=== PATIENT | female | born 2000 | race Caucasian/White ===

== ENCOUNTER 2024-03-18 14:44 | Emergency (ER) | payer OTHER, SELFPAY ==
[2024-03-18 14:56] VITALS: BP 115/83
[2024-03-18 16:10] LABS: Urine Albumin Negative (Neg - Trace); Urine Bilirubin Negative (Negative); Urine Character Clear (Clear); Urine Color Yellow; Urine Glucose Negative (Negative); Urine Ketone Negative (Negative); Urine Leukocyte Negative (Negative); Urine Nitrite Negative (Negative); Urine Occult Blood Negative (Negative); Urine Specific Gravity 1.015 (<1.030); Urine Urobilinogen Negative (Neg - 1+)
[2024-03-18 16:14] LABS: HCG, Urine Qualitative Screen Negative
--- NOTE | 2024-03-18 18:07 | ED.GENMED ---
History of Present Illness
General
Chief Complaint: Abdominal Pain
Time Seen by Provider: 03/18/24 15:30
History of Present Illness
History of Present Illness:
23-year-old female presents to the emergency department for evaluation of acute onset of generalized abdominal pain beginning within the past hour. She reports sharp pain that seems to be somewhat colicky in nature, radiating from the lower abdomen
to the low back. She notes that she has not had a bowel movement in 1 week. No fevers or chills. During the periods of maximal pain she feels sweaty and nauseated. She does note that she has very severe menstrual cramps but she is not due for
her menses for 1 week. No dysuria or hematuria. No prior abdominal surgeries
Review of Systems
Review of Systems
Allergies reviewed?: Yes
All Other Systems: ROS reviewed and negative except as documented in HPI and ROS
Phy Exam
Physical Exam
Physical Exam:
GEN: Well appearing, NAD, WDWN
HEENT: Oral mucosa moist, no scleral icterus
Cardiac: Regular rate
Lung: No respiratory distress, no tachypnea
Abdomen: Generally soft, minimal left lower quadrant tenderness however no rebound or peritoneal signs, no CVA tenderness
MSK: No gross deformity or injuries
Skin: Good color, no pallor or jaundice, no rashes
Neuro: AO x3, moves all extremities freely
Psych: Calm, cooperative
Course
Orders/Labs/Results
Orders:
Orders
03/18/24 15:59
US Pelvis W Transvag Combined Urgent
Comment:
Reason For Exam: L pelvic pain
03/18/24 16:00
Test Result ONCE
03/18/24 16:03
Beta Hcg Urine Qualitative Screen [HCG, Urine Qualitative Screen] Urgent
Date Specimen was Collected: 03/18/24
Time Specimen was Collected: 16:00
Urinalysis Reflex To Culture Urgent
Date Specimen was Collected: 03/18/24
Time Specimen was Collected: 16:01
03/18/24 18:06
Magnesium Citrate [Citroma] 300 ml PO ONCE ONE
Vital Signs
Initial and Last Documented VS:
Initial Vital Signs
Temp Pulse Resp BP Pulse Ox
98.2 F 85 20 115/83 98
03/18/24 14:56 03/18/24 14:56 03/18/24 14:56 03/18/24 14:56 03/18/24 14:56
Last Documented Vital Signs
Temp Pulse Resp BP Pulse Ox
98.2 F 85 20 115/83 98
03/18/24 14:56 03/18/24 14:56 03/18/24 14:56 03/18/24 14:56 03/18/24 14:56
MDM/Problems Addressed
MDM/Problems Addressed:
Ultrasound shows no evidence of gynecologic pathology. Urinalysis is negative for UTI and lack of hematuria is reassuring against kidney stone. I suspect the pain is likely related to constipation given the lower abdominal location and radiation
toward the back. No clinical suspicion for acute surgical abdomen at this time thus do not see any indication for CT of the abdomen pelvis. Patient provided with magnesium citrate for home use, discussed return parameters
*Critical Care Note
Total Time (30-74mins, 75-104mins- exclusive of procedures): Not Applicable
ED Attending Note
-
Portions of this chart may have been created with voice recognition software.� Occasional wrong word or��sound alike� substitutions may have occurred due to the inherent limitations of voice recognition software.
Discharge Plan
Departure
Patient Disposition: Home (Routine Discharge)
Date of Disposition: 03/18/24
Time of Disposition: 18:07
Patient with high blood pressure during this ER visit?: No
Discharge Problem:
Bilateral lower abdominal pain, Constipation
Instructions: Constipation, Adult (DC)
Referrals:
Caitlin Lee DO [Family Provider] -
Interventions
Interventions:
*Risk Screen - Suicide Last Done: 03/18/24 14:44
*General Assessment Last Done: 03/18/24 14:56
*Neglect/Abuse Screening Last Done: 03/18/24 14:56
*Nursing Disposition Last Done: 03/18/24 18:31
BA-Uaowxf-Mlvtjaadys Assessment Last Done: 03/18/24 16:29
Discharge Date and Time
Print Language: MAORI
[2024-03-18 18:10] VITALS: BP 118/78
[2024-03-18] MEDS: CITROMA 300 ML PO (18:21)
== END 2024-03-18 18:31 | disposition home or self-care (01) ==
LOC: EMR 14:44
PROVIDERS: Physician Assistant; EMERGENCY PHYSICIAN Emergency Medicine; FAMILY PHYSICIAN Family Medicine
DX: R10.32 Left lower quadrant pain (principal); R10.31 Right lower quadrant pain; K59.00 Constipation, unspecified
CPT/HCPCS: 99284; 76830; 76856; 81003; 81025

== ENCOUNTER 2024-08-28 03:46 | Emergency (ER) | payer OTHER, SELFPAY ==
[2024-08-28 03:48] VITALS: BP 123/85
--- NOTE | 2024-08-28 04:52 | ED.GENMED ---
History of Present Illness
General
Chief Complaint: Anal/Rectal Problem
Source: patient
Exam Limitations: none
Time Seen by Provider: 08/28/24 04:33
Nursing documentation reviewed up to this point in time: agreed with
History of Present Illness
History of Present Illness:
This is a 24-year-old female with history of constipation. She states constipation has been fairly well-controlled with daily stool softener. She also notes history of intermittent hemorrhoids and yesterday she passed a soft stool but noticed some
bright red blood streaked around the stool as well as a few drops of blood from her anus after passing a soft stool. She has had no further rectal bleeding since yesterday afternoon. No abdominal pain. She denies risk of last menstrual
period August 19.
She does follow with GI and underwent upper endoscopy. Colonoscopy is planned for the near future.
Past History
Past History
ED Past Medical History: Asthma and Other (Constipation, hemorrhoids)
ED Past Surgical History: None
Social History
Tobacco: Non-smoker
Alcohol: None
Personal: Single
Living: with family
Employment: Employed
Family History
Family History: Other (Noncontributory)
Phy Exam
Physical Exam
Physical Exam:
GENERAL: 24-year-old female appears her stated age, bright and alert, pleasant, appears in no acute distress.
EYE: Conjunctiva are dark pink. Anicteric
NECK: Supple, nontender, no meningismus, no significant adenopathy.
ENT: oral mucosa is moist. No rhinorrhea.
CARDIAC: Regular rate and rhythm. no murmur.
LUNGS: Clear breath sounds bilaterally, no acute respiratory distress, no wheezes/rales/rhonchi
ABDOMEN: Soft, nondistended, without focal tenderness, no r/g, no cvat. normoactive BS. Rectal exam reveals no external hemorrhoids. There is a small anal fissure noted anteriorly that is mildly to moderately tender to palpation. No active
bleeding.
NEUROLOGICAL: Alert and oriented x3, no focal neuro deficits. Gait is [place] and steady.
SKIN: Warm and dry, normal color, skin intact. No rash.
MUSCULOSKELETAL: No C/C/E. peripheral pulses are full and equal b/l. No palpable tenderness.
PSYCH: Normal and appropriate interaction.
Course
Orders/Labs/Results
Orders:
Orders
08/28/24 04:52
Anusol Hc Suppository [Anusol Hc] 25 mg RECTAL NOW STA
Vital Signs
Initial and Last Documented VS:
Initial Vital Signs
Temp Pulse Resp BP Pulse Ox
98.5 F 100 16 123/85 100
08/28/24 03:48 08/28/24 03:48 08/28/24 03:48 08/28/24 03:48 08/28/24 03:48
Last Documented Vital Signs
Temp Pulse Resp BP Pulse Ox
98.5 F 100 16 123/85 100
08/28/24 03:48 08/28/24 03:48 08/28/24 03:48 08/28/24 03:48 08/28/24 03:48
MDM/Problems Addressed
Differential Diagnosis Includes:
Patient presents with bright red rectal bleeding only noted with passing a bowel movement. She denies bloody diarrhea. She does note some anal pain and exam is notable for small anal fissure but no evidence of external hemorrhoid, no evidence of
thrombosed hemorrhoids, no evidence of perirectal abscess.
Abdomen is soft without appreciable tenderness.
Nothing in history nor exam to suggest anemia.
At this point no indication for laboratory studies nor imaging.
Patient may be bleeding intermittently from this anal fissure versus concern for potential internal hemorrhoids.
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
Recommend she continue stool softener as well as add a daily fiber supplement. Avoid straining at stool.
Strict return precautions discussed.
*Pulse Oximetry
Patient hypoxic: no
*Critical Care Note
Total Time (30-74mins, 75-104mins- exclusive of procedures): Not Applicable
ED Attending Note
-
Portions of this chart may have been created with voice recognition software.� Occasional wrong word or��sound alike� substitutions may have occurred due to the inherent limitations of voice recognition software.
Discharge Plan
Departure
Patient Disposition: Home (Routine Discharge)
Date of Disposition: 08/28/24
Time of Disposition: 04:57
Patient with high blood pressure during this ER visit?: No
Condition: Good
Discharge Problem:
Bright red rectal bleeding, Acute anterior anal fissure
Instructions: Hemorrhoids (DC), Anal Fissure, Adult ED
Prescriptions:
New
hydrocortisone acetate [Anusol-HC] 25 mg suppository
25 mg ND BID Qty: 24 0RF
Referrals:
Ramirez Knight MD [Active] - Call in 1-3 days for appt
Activity Restrictions/Additional Instructions:
Continue your daily stool softener and along with this I want you to add a fiber supplement such as Metamucil daily.
You have been prescribed Anusol suppositories to insert rectally twice daily over the next 12 days.
Avoid straining to pass a bowel movement and avoid prolonged sitting on the toilet.
Follow-up with your blade operator for recheck and you have been referred to colorectal surgeon as well.
If rectal bleeding worsens especially if you are passing bloody diarrhea, prompt return to the ER for further evaluation.
Interventions
Interventions:
*Risk Screen - Suicide Last Done: 08/28/24 03:48
*General Assessment Last Done: 08/28/24 04:45
*Neglect/Abuse Screening Last Done: 08/28/24 04:45
*ED COVID-19 Vaccine History Last Done: 08/28/24 04:45
ED-Skin Assessment Last Done: 08/28/24 04:45
Discharge Date and Time
Print Language: SETSWANA
[2024-08-28] MEDS: ANUSOL HC 25 MG RECTAL (05:11)
== END 2024-08-28 05:43 | disposition home or self-care (01) ==
LOC: EMR 03:46
PROVIDERS: EMERGENCY PHYSICIAN Emergency Medicine; FAMILY PHYSICIAN Family Medicine
DX: K62.5 Hemorrhage of anus and rectum (principal); K60.2 Anal fissure, unspecified; K59.00 Constipation, unspecified; J45.909 Unspecified asthma, uncomplicated; Z87.19 Personal history of other diseases of the digestive system
CPT/HCPCS: 99282